=== PATIENT | male | born 1960 | race Caucasian/White ===

== ENCOUNTER 2024-01-05 14:18 | Emergency (ER) | payer OTHER, SELFPAY ==
[2024-01-05 14:20] VITALS: BP 166/96
[2024-01-05 14:44] VITALS: BMI 26.3
--- NOTE | 2024-01-05 14:44 | ED.GENMED ---
History of Present Illness
General
Chief Complaint: Abnormal Lab Value
Source: patient
Exam Limitations: none
Time Seen by Provider: 01/05/24 14:43
Nursing documentation reviewed up to this point in time: agreed with
History of Present Illness
History of Present Illness:
63-year-old male with history of HTN, HLD presents from urgent care where he went to be evaluated for left flank pain. They sent him here as they found his white blood cell count to be elevated. Presents stating he woke at 1 a.m. today, turned in
bed and noted left flank pain. Throughout the night it bothered him with movements. Tried Tylenol and Aspercream with no relief. Denies n/v/d/c/f/c. Denies fever or UTI symptoms.
Past History
Past History
ED Past Medical History: None
ED Past Surgical History: None
Social History
Tobacco: Smoker
Alcohol: Occasional
Personal:
Living: with family
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
Review of Systems
Review of Systems
Allergies reviewed?: Yes
All Other Systems: ROS reviewed and negative except as documented in HPI and ROS
Constitutional: Denies fever or chills
Respiratory: Denies trouble breathing
Cardiac: Denies chest pain
ABD/GI: Denies abdominal pain, nausea, vomiting, diarrhea or anorexia
: Reports flank pain (right ); Denies dysuria, frequency, incontinence, difficulty voiding or urgency
Musculoskeletal: Reports back pain (tender right lower back/flank)
Skin: Reports no symptoms
Neurological: Reports no symptoms
Phy Exam
Physical Exam
Physical Exam:
GENERAL: No acute distress. A&Ox3.
CONSTITUTIONAL: Afebrile.
RESPIRATORY: Regular respirations, nonlabored, lungs clear.
CARDIOVASCULAR: Regular rate and rhythm, no murmurs, no rubs.
GI: Soft, nontender, normal BS
MUSCULOSKELETAL: Moves with ease. Well perfused. Palpation over left mid flank immediately reproduces pain. Full range of motion of spine to rotation of torso and forward flexion with fingertips touching toes and back up again.
SKIN: Warm, dry, pink
PSYCH: Normal mood and affect. Well kept, interactive and appropriate
NEUROLOGIC: Awake, alert and oriented. No focal neurological deficits
Course
Orders/Labs/Results
Orders:
Orders
01/05/24 14:53
IV Insert/Care/Rem.- Treatment PRN
0.9% Sodium Chloride 1000 ml [Nss] 1,000 ml IV BOLUS
01/05/24 14:54
CT Abd/pel Without Iv Or Oral Urgent
Comment:
Reason For Exam: L flank pain
01/05/24 15:17
Complete Blood Count/With Diff Urgent
Comprehensive Metabolic Panel Urgent
Urinalysis Reflex To Culture Urgent
Date Specimen was Collected: 01/05/24
Time Specimen was Collected: 14:55
01/05/24 16:11
Ketorolac [Toradol] 15 mg IV NOW STA
Abnormal Lab Results
01/05/24
15:17
WBC 16.5 H 10^3/uL
(4.8-10.8)
RBC 4.14 L 10^6/uL
(4.70-6.10)
Hct 38.0 L %
(39.0-52.0)
MCH 32.6 H pg
(27.0-31.0)
Abs Immat Gran (auto) 0.1 H 10^3/uL
(0-0.05)
Absolute Neuts (auto) 14.6 H 10^3/uL
(1.4-6.5)
Absolute Lymphs (auto) 1.0 L 10^3/uL
(1.2-3.4)
Absolute Monos (auto) 0.7 H 10^3/uL
(0.1-0.6)
Neutrophils % 88.5 H %
(42.2-75.2)
Lymphocytes % 6.3 L %
(20.5-51.1)
Glucose 110 H mg/dl
(70-99)
01/05/24 15:17
01/05/24 15:17
Vital Signs
Initial and Last Documented VS:
Initial Vital Signs
Temp Pulse Resp BP Pulse Ox
99.0 F 64 20 166/96 97
01/05/24 14:20 01/05/24 14:20 01/05/24 14:20 01/05/24 14:20 01/05/24 14:20
Last Documented Vital Signs
Temp Pulse Resp BP Pulse Ox
99.0 F 65 18 160/94 97
01/05/24 14:20 01/05/24 16:20 01/05/24 16:20 01/05/24 16:20 01/05/24 16:20
MDM/Problems Addressed
Differential Diagnosis Includes:
kidney stone, pyelonephritis, musculoskeletal pain
MDM/Problems Addressed:
63-year-old male with history of HTN, HLD presents from urgent care where he went to be evaluated for left flank pain. They sent him here as they found his white blood cell count to be elevated. Presents stating he woke at 1 a.m. today, turned in
bed and noted left flank pain. Throughout the night it bothered him with movements. Tried Tylenol and Aspercream with no relief. Denies n/v/d/c/f/c. Denies fever or UTI symptoms.
Afebrile, NAD
Point tender over left mid flank, palpation here immediately reproduces pain.
Visit summary sheet from scanned into chart
WBC 18.0 at Urgent Care
4:00 p.m.
CBC: WBC 16.5
CMP normal
U/A neg
CT abdomen pelvis radiology report read: IMPRESSION:
No evidence for urinary tract calculi.
Calcification of the right coronary artery. Please correlate with symptoms of and risk factors for coronary artery disease, with further workup as clinically appropriate.
Bony degenerative changes including dextroconvex scoliosis. There is left-sided foraminal narrowing, which appears greatest at L3-4.
In to re evaluate pt. Pain is now gone
Nothing to explain leukocytosis until in further discussed, pt admits he took 'one steroid pill' left over from previous rx this a.m. for the pain.
No infectious symptoms.
Most likely musculoskeletal pain
Informed pt and of CT results and given referral to cardiology.
*Critical Care Note
Total Time (30-74mins, 75-104mins- exclusive of procedures): Not Applicable
ED Attending Note
-
Portions of this chart may have been created with voice recognition software.� Occasional wrong word or��sound alike� substitutions may have occurred due to the inherent limitations of voice recognition software.
Discharge Plan
Departure
Patient Disposition: Home (Routine Discharge)
Date of Disposition: 01/05/24
Time of Disposition: 16:23
Patient with high blood pressure during this ER visit?: Yes
Condition: Good
Discharge Problem:
Acute left flank pain
Instructions: Coronary artery disease, Back Pain, BLOOD PRESSURE
Prescriptions:
No Action
hydrocodone-acetaminophen [Vicodin] 1 EACH tablet
1 ea PO Q4HPRN PRN (Reason: pain) Qty: 20 0RF
No Current Medications
0
Referrals:
Nelida Guzman MD [Active] - Next open appointment
UNKNOWN - PT DOES,NOT KNOW [Family Provider] -
Activity Restrictions/Additional Instructions:
As we discussed, this is most likely muscular back pain
Ibuprofen 600 mg every 6 hours as needed for pain, heating pad may help
Your blood pressure is a little high. Have it rechecked
see your doctor in next week for repeat blood work to check the White Blood Cell count and BP recheck.
Avoid steroids for now.
You have some calcification in one of the heart arteries. Nothing urgent but call and make cardiology appointment within the next 3-4 months, or sooner if available, for a thorough cardiac evaluation.
Interventions
Interventions:
*Risk Screen - Suicide Last Done: 01/05/24 14:41
*General Assessment Last Done: 01/05/24 16:38
*Neglect/Abuse Screening Last Done: 01/05/24 14:41
ED- Fall Risk Assessment Last Done: 01/05/24 16:38
*ED COVID-19 Vaccine History Last Done: 01/05/24 14:41
*Nursing Disposition Last Done: 01/05/24 16:38
Discharge Date and Time
Discharge Date/Time: 01/05/24 16:38
Print Language: NORWEGI[place]
[2024-01-05] MEDS: NSS 1000 IV (15:20)
[2024-01-05 15:40] LABS: % Basophils 0.4 % (0-2); % Eosinophils 0.1 % (0-6); % Immature Granulocytes 0.5 % (0-0.5); % Lymphocytes 6.3 % (20.5-51.1); % Monocytes 4.2 % (1.7-9.3); % Neutrophils 88.5 % (42.2-75.2); Absolute Basophils 0.1 10^3/uL (0-0.2); Absolute Immature Granulocytes 0.1 10^3/uL (0-0.05); Absolute Monocytes 0.7 10^3/uL (0.1-0.6); Absolute Neutrophils 14.6 10^3/uL (1.4-6.5); Hemoglobin 13.5 g/dL (13.0-18.0); Mean Corp Hgb Conc. 35.5 g/dL (33.0-37.0); Mean Corpuscular Hgb 32.6 pg (27.0-31.0); Mean Corpuscular Volume 91.8 fL (80.0-94.0); Mean Platelet Volume 8.8 fL (7.4-10.4); Nucleated Red Blood Cells % 0 % (-); Platelet Count 365 10^3/uL (130-400); Red Blood Cell Count 4.14 10^6/uL (4.70-6.10); Red Cell Dist. Width 12.5 % (11.5-14.5); White Blood Cell Count 16.5 10^3/uL (4.8-10.8)
[2024-01-05 15:45] LABS: Urine Albumin Negative (Neg - Trace); Urine Bilirubin Negative (Negative); Urine Character Clear (Clear); Urine Color Yellow; Urine Glucose Negative (Negative); Urine Ketone Negative (Negative); Urine Leukocyte Negative (Negative); Urine Nitrite Negative (Negative); Urine Occult Blood Negative (Negative); Urine Specific Gravity 1.025 (<1.030); Urine Urobilinogen Negative (Neg - 1+)
[2024-01-05 16:05] LABS: ALT (SGPT) 40 U/L (0-50); AST (SGOT) 40 U/L (17-59); Albumin 4.6 g/dl (3.5-5.0); Alkaline Phosphatase 97 U/L (38-126); Blood Urea Nitrogen 17 mg/dl (9-20); Calcium 9.7 mg/dl (8.4-10.2); Carbon Dioxide 22 mmol/L (22-30); Chloride 107 mmol/L (98-107); Estimated Creatinine Clearance 111 ml/min; Glucose 110 mg/dl (70-99); Potassium 4.6 mmol/L (3.5-5.1); Sodium 142 mmol/L (135-145); Total Bilirubin 0.8 mg/dl (0.2-1.3); eGFR > 60.00
[2024-01-05] MEDS: TORADOL 15 MG IV (16:18)
[2024-01-05 16:20] VITALS: BP 160/94
== END 2024-01-05 16:38 | disposition home or self-care (01) ==
LOC: EMR 14:18
PROVIDERS: Registered Nurse; EMERGENCY PHYSICIAN Emergency Medicine
DX: R10.9 Unspecified abdominal pain (principal); M54.50 Low back pain, unspecified; R79.89 Other specified abnormal findings of blood chemistry; M41.80 Other forms of scoliosis, site unspecified; M48.061 Spinal stenosis, lumbar region without neurogenic claudication; I10 Essential (primary) hypertension; E78.5 Hyperlipidemia, unspecified; F17.200 Nicotine dependence, unspecified, uncomplicated
CPT/HCPCS: 99284; 96374; 96361; 74176; 80053; 81003; 85025

== ENCOUNTER → 2025-02-10 07:06 | Outpatient (REF) | payer OTHER, SELFPAY | LOC: HWRCS 07:06 | PROVIDERS: ATTENDING PHYSICIAN Internal Medicine; FAMILY PHYSICIAN Physician Assistant Medical | DX: I10 Essential (primary) hypertension (principal); E78.2 Mixed hyperlipidemia; R01.1 Cardiac murmur, unspecified | CPT/HCPCS: 93306 ==